=== PATIENT | male | born 1965 | race Caucasian/White ===

== ENCOUNTER 2025-01-25 06:08 | Day surgery (SDC) | payer OTHER ==
[~2025-01-25] VITALS: Ht 170.2 cm; Wt 72.7 kg
[~2025-01-25 06:08] MED LIST: COZAAR50 MG PO; MIDAZOLAM HCL 5 MG/5 ML VIAL IV PRN; fentaNYL citrate 100 MCG/2 ML VIAL IV PRN
[2025-01-25 06:27] VITALS: BP 168/96
[2025-01-25] MEDS ORDERED: MIDAZOLAM HCL 5 MG/5 ML VIAL ONE (06:43)
[2025-01-25] MEDS ORDERED: fentaNYL citrate 100 MCG/2 ML VIAL ONE (06:44)
[2025-01-25] MEDS ORDERED: VAZALORE81 MG PO (06:51)
[2025-01-25] MEDS ORDERED: LIDOCAINE HCL 1% 5 ML SDV INJ ONE (07:00)
[2025-01-25] MEDS ORDERED: IBLOOD GLUCOSE TEST STRIP 1 EA TEST VI PRN (07:00)
[2025-01-25] MEDS ORDERED: LACTATED RINGER'S 1,000 ML IV SCH (07:00)
--- NOTE | 2025-01-25 07:26 | NUR ---
VISITED DURING SPIRITUAL CARE ROUNDS. PT IN OVERALL GOOD SPIRITS, NO IMMEDIATE NEEDS. 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 PT EXPRESSED GRATITUDE.
--- NOTE | 2025-01-25 08:12 | NUR ---
01/25/25 0812 Allan,Jaleesa 0805 PT ARRIVED TO PACU ON 2L NC AND RESP EVEN AND UNLABORED. PT WAKES EASILY AND IS REORIENTED TO PACU. PT DENIES PAIN AND NAUSEA.
[2025-01-25 08:36] VITALS: BP 102/63
--- NOTE | 2025-01-29 10:58 | PATH ---
[facility] [address] [place], [place] [address] Signed SPECIMEN(S): A ASCENDING COLON POLYP SPECIMEN SOURCE: A. ASCENDING COLON POLYP CLINICAL HISTORY: Preop: History of polyp. Family history of colon CA. Postop diverticulosis, polyps x 4 FINAL PATHOLOGIC DIAGNOSIS: Colon, ascending, polypectomies: - Tubular adenomas (3 fragments) BRP MICROSCOPIC EXAMINATION: Histologic sections of all submitted blocks are examined by light microscopy. These findings, together with the gross examination, support the pathologic diagnosis. GROSS DESCRIPTION: The specimen, labeled and designated "More Braun, ascending colon polyp," is received in formalin and consists of seven sims soft tissue fragments, ranging from 0.1-0.3 cm. Entirely submitted in (A1). AB (under the direct supervision of a pathologist) The Gross Description was prepared using a voice recognition system. The report was reviewed for accuracy; however, sound-alike word errors, addition and/or deletions may occur. If there is any question about this report, please contact Client Services. ADDITIONAL NOTES: Immunohistochemical and/or in situ hybridization studies if performed in this case included appropriate positive controls that reacted as expected. This test was developed and its performance characteristics determined by [facility]. It has not been cleared or approved by the U.S. Food and Drug Administration. The FDA has determined that such clearance or approval is not necessary. This test is used for clinical purposes. It should not be regarded as investigational or for research. [facility] is certified under the Clinical Laboratory Improvement Amendments of 1988 (CLIA) as qualified to perform high complexity clinical laboratory testing. PATIENT NAME: WES BRAUN PATHOLOGY DATE OF : 61 REPORT #: [id number] PHYSICIAN: ARTHUR COLIN PCP: VERENA EVANS MD REPORT IS CONFIDENTIAL AND NOT TO BE RELEASED WITHOUT AUTHORIZATION [address] [place] [address] Signed PERFORMING LABORATORY: Technical component was performed [place] [id number] (CLIA# [id number]). Professional interpretation was performed by [facility] - [facility], [address] [place] [address] (CLIA#: [id number]). Diagnostician: Joe Velez MD Pathologist Electronically Signed 01/29/2025 Copies: ~ PATIENT NAME: WES BRAUN PATHOLOGY DATE OF : 61 REPORT #: [id number] PHYSICIAN: ARTHUR COLIN PCP: VERENA EVANS MD REPORT IS CONFIDENTIAL AND NOT TO BE RELEASED WITHOUT AUTHORIZATION
--- NOTE | 2025-01-29 13:16 | OR ---
[facility] [address] [place], [place] [address] Signed DATE OF OPERATION: 01/25/2025 SURGEON: Martin Rangel MD PREOPERATIVE DIAGNOSES: 1. Family history of colon cancer (mother). 2. History of polyps. POSTOPERATIVE DIAGNOSES: 1. Extensive diverticulosis, sigmoid colon. 2. Polyp of proximal ascending colon. PROCEDURE: Total colonoscopy to cecum with cold morcellation polypectomy x1. ANESTHESIA: Intravenous sedation, fentanyl 100 mcg and Versed 7 mg. INDICATIONS: This 59-year-old white man is a patient of Dr. Verena Izaguirre and has family history of colon cancer in his mother. He has had colonoscopy in the past, particularly in [place]. He has had polyps resected there as well. He is currently asymptomatic. He is admitted at this time to undergo colonoscopy. He understands the risk of bleeding, infection, and perforation. FINDINGS: The prep was good. Complete colonoscopy was undertaken of the cecum. There was a small polyp of the proximal ascending colon, which was excised with cold morcellation technique. The remaining colon was normal except for dense diverticular change of the sigmoid and left colon. DESCRIPTION OF PROCEDURE: The patient was brought to the endoscopy suite and placed in lateral decubitus position given intravenous sedation to the point of slurred speech and nystagmus. Digital rectal examination was normal. An Olympus video colonoscope was passed into the rectum and manipulated into the sigmoid, where numerous diverticula were noted. Ultimately, the scope was passed beyond this into the cecum itself. The cecum could not be fully intubated, though was well visualized. A biopsy forceps used to elevate the mucosa behind the ileocecal valve, which was normal. The scope was then withdrawn and promptly noted was a small polyp of the proximal ascending colon, this was excised with cold Electronically Signed By: MARTIN RANGEL MD 01/29/25 1316 PATIENT NAME: WES HERNANDEZ OPERATIVE REPORT DATE OF : 61 REPORT #: [id number] PHYSICIAN: MARTIN RANGEL MD PCP: VERENA IZAGUIRRE MD REPORT IS CONFIDENTIAL AND NOT TO BE RELEASED WITHOUT AUTHORIZATION [facility] [address] [place], [place] [address] Signed morcellation technique. Further withdrawal of scope showed no other abnormality other than the diverticula as previously noted. Retroflexed view of the rectum was normal. Scope was removed. The patient was taken to the recovery room in good condition. CONCLUDING DIAGNOSIS: Polyp of proximal ascending colon and diverticulosis. PLAN: Recommend repeat colonoscopy in 5 years or sooner if symptoms should develop. He will return to the ongoing care of Dr. Verena Izaguirre. MD SADE Card/MARISOL /[id number] cc: Verena Izaguirre MD Copies: VERENA IZAGUIRRE MD ~ Electronically Signed By: MARTIN RANGEL MD 01/29/25 1316 PATIENT NAME: WES HERNANDEZ OPERATIVE REPORT DATE OF : 61 REPORT #: [id number] PHYSICIAN: MARTIN RANGEL MD PCP: VERENA IZAGUIRRE MD REPORT IS CONFIDENTIAL AND NOT TO BE RELEASED WITHOUT AUTHORIZATION
== END 2025-01-25 08:47 | disposition home or self-care (01) ==
LOC: DS 06:08
PROVIDERS: ATTEND Surgery
PROC: 0DBK8ZZ Excision of Ascending Colon, Via Natural or Artificial Opening Endoscopic (ICD-10-PCS; principal; 2025-01-25 07:30)
DX: Z12.11 Encounter for screening for malignant neoplasm of colon (principal); D12.2 Benign neoplasm of ascending colon; K57.30 Diverticulosis of large intestine without perforation or abscess without bleeding; I10 Essential (primary) hypertension; Z86.0100 Personal history of colon polyps, unspecified; Z79.899 Other long term (current) drug therapy; Z80.0 Family history of malignant neoplasm of digestive organs
CPT/HCPCS: 99153; G0500; J2250; J3010; J7121